=== PATIENT | female | born 1995 | race Caucasian/White ===

== ENCOUNTER 2022-04-16 08:00 | Outpatient (CLI) | payer OTHER ==
[2022-04-16 23:33] LABS: INFLUENZA A- RESP PCR PANEL NOT DETECTED; INFLUENZA B - RESP PCR PANEL NOT DETECTED; RSV- RESP PCR PANEL NOT DETECTED; SARS-CoV-2 -RESP PCR PANEL NOT DETECTED
== END 2022-04-16 23:59 | disposition home or self-care (01) ==
LOC: LAB 08:00
PROVIDERS: ATTEND Physician Assistant
DX: J06.9 Acute upper respiratory infection, unspecified (principal); Z20.822 Contact with and (suspected) exposure to COVID-19
CPT/HCPCS: 87637

== ENCOUNTER 2023-05-18 11:36 | Emergency (ER) | payer OTHER ==
[2023-05-18 11:51] VITALS: BP 139/85; O2SAT 98
[2023-05-18] MEDS ORDERED: ONDANSETRON 4 MG/2 ML VIAL IVP STA (11:59)
[2023-05-18] MEDS ORDERED: SODIUM CHLORIDE 0.9% 1,000 ML IV STA (11:59)
--- NOTE | 2023-05-18 12:02 | ED Physician Documentation ---
History of Present Illness - Stated complaint Stated Complaint: VOMIT,STOMACH PX - Chief complaint Chief Complaint: Abd Pain - Additonal information Additional information: 27-year-old female comes to the emergency department for evaluation of generalized malaise and vomiting. States that for the last 3 days she has felt fatigued and tired. No fevers but cannot get warm. She had upper abdominal cramping and vomiting. Denies possibility of as she just ended her menstrual cycle. She was also concerned about some bruising on her right calf. Was seen at [facility] and was told that the bruise was likely superficial thrombophlebitis. Patient denies chest pain or shortness of air. No recent travel. No unilateral leg swelling. No hormone use. No personal history of cancer or DVT. Past surgical history includes previous cholecystectomy. Patient takes no prescribed medications. Review of Systems Constitutional: reports: Chills, Fatigue. denies: Fever, Myalgias Eyes: reports: Reviewed and negative Nose: reports: Reviewed and negative Throat: reports: Reviewed and negative Cardiac: denies: Chest pain / pressure, Palpitations, Pedal edema, Calf pain Respiratory: denies: Dyspnea, Cough, Hemoptysis, Wheezing GI: reports: Abdominal Pain, Nausea, Vomiting. denies: Constipation, Diarrhea : reports: Reviewed and negative Skin: reports: Reviewed and negative Musculoskeletal: reports: Reviewed and negative PD PAST MEDICAL HISTORY - Past Medical History Past Medical History: Yes Respiratory: Asthma - Past Surgical History Past Surgical History: Yes General: Cholecystectomy HEENT: Other - Present Medications Home Medications: Ambulatory Orders Medication Instructions Recorded Confirmed Ondansetron Odt [Zofran] 4 mg TL Q6H PRN #10 tablet 05/18/23 - Allergies Allergies/Adverse Reactions: Allergies Allergy/AdvReac Type Severity Reaction Status Date / Time No Known Drug Allergies Allergy Verified 05/18/23 11:48 - Social History Does the pt smoke?: No Smoking Status: Never smoker Does the pt drink ETOH?: No Does the pt have substance abuse?: No - Immunizations Immunizations are current?: Yes PD ED PE NORMAL - General General: Alert and oriented X 3, No acute distress, Well developed/nourished - HEENT HEENT: Atraumatic - Neck Neck: Supple, no meningeal sign - Cardiac Cardiac: RRR, No murmur - Respiratory Respiratory: No respiratory distress, Clear bilaterally - Abdomen Abdomen: Normal bowel sounds, Soft, Non tender (I elicited no abdominal tenderness with light or deep palpation or percussion. 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 Eye Opening: Spontaneous Motor: Obeys Commands Verbal: Oriented GCS Score: 15 Results - Vitals Vitals: Vital Signs - 24 hr 05/18/23 11:41 Temperature 37.3 C Heart Rate 75 Respiratory 15 Rate Blood Pressure 139/85 H O2 Saturation 98 - Labs Labs: Laboratory Tests 05/18/23 05/18/23 05/18/23 12:01 12:09 12:09 WBC 7.1 RBC 5.11 Hgb 14.8 Hct 44.4 MCV 86.9 MCH 29.0 MCHC 33.3 RDW 12.3 Plt Count 323 MPV 10.7 Neut # (Auto) 5.2 Lymph # (Auto) 1.3 L [place] # (Auto) 0.4 Eos # (Auto) 0.2 Baso # (Auto) 0.1 Absolute Nucleated RBC 0.00 Nucleated RBC % 0.0 Sodium 138 Potassium 4.0 Chloride 105 Carbon Dioxide 25 Anion Gap 8.0 BUN 13 Creatinine 0.8 Estimated GFR (MDRD) 85 L Glucose 102 Calcium 9.4 Total Bilirubin 0.6 AST 18 ALT 32 Alkaline Phosphatase 66 Total Protein 6.9 Albumin 4.5 Globulin 2.4 Albumin/Globulin Ratio 1.9 Lipase < 10 L Urine Color YELLOW Urine Clarity CLEAR Urine pH 6.5 Ur Specific [place] 1.010 Urine Protein NEGATIVE Urine Glucose (UA) NEGATIVE Urine Ketones NEGATIVE Urine Occult Blood MODERATE H Urine Nitrite NEGATIVE Urine Bilirubin NEGATIVE Urine Urobilinogen 0.2 (NORMAL) Ur Leukocyte Esterase SMALL H Urine RBC None Seen Urine WBC 11-25 H Urine WBC Clumps PRESENT Ur Squamous Epith Cells MOD Squamous H Urine Bacteria Few Ur Microscopic Review INDICATED Urine Culture Comments NOT INDICATED Urine HCG, Qual NEGATIVE PD Medical Decision Making - ED course Complexity details: reviewed results, re-evaluated patient, d/w patient ED course: 27-year-old female comes emergency department for evaluation of several days of fatigue, malaise and now upper abdominal pain nausea and vomiting. On presentation she appears remarkably well. No abdominal tenderness was elicited. CBC, electrolytes and urinalysis were without acute worrisome abnormalities. I administered the patient some IV fluids and Zofran and on reevaluation she reported the nausea had improved. Clinically I suspect the patient has a mild viral illness causing the fatigue and nausea. Given the lack of abdominal tenderness or worrisome abnormal vital signs or labs I do not feel that advanced imaging is clinically warranted today as I am not suspicious for occult surgical abdomen. Prescription for Zofran is sent to the patient's preferred pharmacy. The usual emergent return precautions were discussed for worsening symptoms. Departure - Departure Disposition: Home, Self Care Clinical Impression: Fatigue Qualifiers: Fatigue type: unspecified Qualified Code(s): R53.83 - Other fatigue Vomiting Qualifiers: Vomiting type: unspecified Nausea presence: with nausea Qualified Code(s): R11.2 - Nausea with vomiting, unspecified Condition: Stable Prescriptions: Ondansetron Odt [Zofran] 4 mg TL Q6H PRN #10 tablet PRN Reason: Nausea / Vomiting Comments: As discussed at the bedside I suspect the most likely cause of your fatigue, malaise and nausea is a virus. This typically runs its course and 3 to 5 days. Your labs obtained today in the emergency department were all essentially normal without any worrisome findings. We did give you some IV fluids as well as some IV Zofran here in the emergency department and he feels that the nausea is improved. I have sent a prescription for some oral Zofran to the [facility] in [place]. In general over the next several days I recommend fluids at home and rest. Reasons to return to the emergency department would include uncontrolled vomiting, sudden severe abdominal pain, black or bloody stools. Forms: PCP List
[2023-05-18 12:10] LABS: BILIRUBIN,URINE NEGATIVE (NEGATIVE); GLUCOSE, URINE (UA) NEGATIVE (NEGATIVE); KETONES,URINE (UA) NEGATIVE (NEGATIVE); LEUKOCYTE ESTERASE, URINE SMALL (NEGATIVE); NITRITE,URINE NEGATIVE (NEGATIVE); OCCULT BLOOD,URINE MODERATE (NEGATIVE); PH,URINE 6.5 PH (5.0-7.5); PROTEIN,URINE NEGATIVE (NEGATIVE); UROBILINOGEN,URINE 0.2 (NORMAL) E.U./dL (NORMAL)
[2023-05-18 12:12] LABS: CLARITY,URINE CLEAR (CLEAR); HCG UR QUAL NEGATIVE
[2023-05-18 12:15] LABS: BASOPHILS # (AUTO) 0.1 10^3/uL (0.0-0.1); BASOPHILS % (AUTO) 0.7 %; EOSINOPHILS # (AUTO) 0.2 10^3/uL (0.0-0.7); EOSINOPHILS % (AUTO) 2.7 %; HCT - HEMATOCRIT 44.4 % (37.0-47.0); HGB - HEMOGLOBIN 14.8 g/dL (12.0-16.0); LYMPHOCYTES # (AUTO) 1.3 10^3/uL (1.5-3.5); LYMPHOCYTES % (AUTO) 17.9 %; MEAN CORPUSCULAR HGB CONC 33.3 g/dL (32.0-36.0); MEAN CORPUSCULAR VOLUME 86.9 fL (81.0-99.0); MEAN PLATELET VOLUME 10.7 fL (7.9-10.8); MONOCYTES # (AUTO) 0.4 10^3/uL (0.0-1.0); MONOCYTES % (AUTO) 5.5 %; NEUTROPHILS # (AUTO) 5.2 10^3/uL (1.5-6.6); NEUTROPHILS % (AUTO) 72.9 %; PLT - PLATELET COUNT 323 10^3/uL (130-450); RED BLOOD COUNT 5.11 10^6/uL (4.20-5.40); RED CELL DISTRIBUTION WIDTH 12.3 % (12.0-15.0); WHITE BLOOD COUNT 7.1 x10^3/uL (4.8-10.8)
[2023-05-18 12:19] LABS: BACTERIA,URINE Few /HPF (None Seen); RBC,URINE None Seen /HPF (0-5); SQUAMOUS EPITHELIAL CELL,UR MOD Squamous (<= Few); WBC CLUMPS,URINE PRESENT
[2023-05-18 12:31] LABS: ALBUMIN 4.5 g/dL (3.2-5.5); ALBUMIN/GLOBULIN RATIO 1.9 (1.0-2.2); ALKALINE PHOSPHATASE 66 IU/L (42-121); ALT ALANINE AMINOTRANSFERASE 32 IU/L (10-60); AST ASPARTATE AMINOTRANSFERASE 18 IU/L (10-42); BILIRUBIN,TOTAL 0.6 mg/dL (0.2-1.0); BUN - BLOOD UREA NITROGEN 13 mg/dL (6-20); CALCIUM 9.4 mg/dL (8.5-10.3); CARBON DIOXIDE - CO2 25 mmol/L (21-32); CHLORIDE 105 mmol/L (101-111); CREATININE 0.8 mg/dL (0.6-1.3); GFR - MDRD 85 (>89); GLUCOSE 102 mg/dL (74-104); SODIUM 138 mmol/L (135-145); TOTAL PROTEIN 6.9 g/dL (6.4-8.9)
[2023-05-18 12:42] LABS: LIPASE < 10 U/L (11-82)
== END 2023-05-18 13:08 | disposition home or self-care (01) ==
LOC: ED 11:36
DX: R11.2 Nausea with vomiting, unspecified (principal); R53.83 Other fatigue
CPT/HCPCS: 36415; 80053; 81001; 81003; 81025; 83690; 85025; 87086; 96374; 99283

== ENCOUNTER 2024-02-27 18:52 | Emergency (ER) | payer OTHER ==
--- NOTE | 2024-02-27 19:26 | ED Physician Documentation ---
History of Present Illness - Stated complaint Stated Complaint: RT FOOT PX - Chief complaint Chief Complaint: Ext Problem - Additonal information Additional information: Patient is a 28-year-old female presenting to the emergency department with right foot pain and swelling. Patient notes she ran a half marathon yesterday and today has persistent pain. She noted pain to the dorsal portion of her right foot. She notes similar episode occurred back in September when she ran a half marathon that as well. She denies any pain while she was doing her training. No obvious deformity according to patient. She was able to walk and bear weight on the foot throughout the day. PD PAST MEDICAL HISTORY - Past Medical History Past Medical History: Yes Respiratory: Asthma - Past Surgical History Past Surgical History: Yes General: Cholecystectomy HEENT: Other - Present Medications Home Medications: Ambulatory Orders Medication Instructions Recorded Confirmed Ondansetron Odt [Zofran] 4 mg TL Q6H PRN #10 tablet 05/18/23 - Allergies Allergies/Adverse Reactions: Allergies Allergy/AdvReac Type Severity Reaction Status Date / Time No Known Drug Allergies Allergy Verified 02/27/24 18:56 - Social History Does the pt smoke?: No Smoking Status: Never smoker Does the pt drink ETOH?: No Does the pt have substance abuse?: No - Immunizations Immunizations are current?: Yes - POLST Patient has POLST: No PD ED PE NORMAL - Vitals Vital signs reviewed: Yes - General General: Alert and oriented X 3 - HEENT HEENT: Atraumatic - Neck Neck: Supple, no meningeal sign - Cardiac Cardiac: RRR, No murmur, No gallop, No rub - Respiratory Respiratory: No respiratory distress, Clear bilaterally - Abdomen Abdomen: Normal bowel sounds - Back Back: No CVA TTP - Derm Derm: Normal color, Warm and dry, No rash - Neuro Neuro: Alert and oriented X 3 Eye Opening: Spontaneous Motor: Obeys Commands Verbal: Oriented GCS Score: 15 Results - Vitals Vitals: Vital Signs - 24 hr 02/27/24 18:56 Temperature 36.5 C Heart Rate 96 Respiratory 16 Rate Blood Pressure 150/90 H O2 Saturation 98 Oxygen O2 Source Room air PD Medical Decision Making - ED course Complexity details: reviewed old records, reviewed results ED course: Patient is a 28-year-old female with right foot pain that occurred after running half marathon yesterday she notes she was able to bear weight on it but have persistent pain despite taking ibuprofen in the morning. She notes similar episode occurred back in September when she ran a half marathon done as well. She notes numbness or tingling. Sensation intact on physical exam reproducible tenderness to metatarsal of the first digit and second digit. No obvious swelling is 1 through 5 full range of motion intact. X-ray showed no acute fracture. Patient updated on reassuring findings. She is given crutches and postop shoe here in emergency department and instructed to remain off foot until pain resolves. If symptoms do not resolve after a week she is instructed to follow-up with her PCP she may require further imaging at this time. Patient agreeable with this plan instructed to take Tylenol and ibuprofen for pain elevate and ice to help with symptoms. Departure - Departure Disposition: 01 Home, Self Care Clinical Impression: Right foot sprain, Right foot pain Condition: Good Instructions: ED ADOLPH Comments: You were seen here in the emergency department for your right foot pain your workup here in the emergency department showed no acute fracture. I have given you a postop shoe to help with pain control and crutches to help with ambulating at home you should continue to use these until pain resolves if your pain persists while trying to walk please return to the emergency department or follow-up with your PCP after 1 week for repeat imaging as this could be a sign of an occult fracture versus stress fracture please return with any pain swelling fevers nausea vomiting discoloration to extremity. Forms: PCP List
--- NOTE | 2024-02-27 19:59 | XRAY Report ---
PROCEDURE: Foot 3+V RT INDICATIONS: Trauma TECHNIQUE: 3 views of the foot were acquired. COMPARISON: None. FINDINGS: Bones: No fractures or dislocations. No suspicious bony lesions. Soft tissues: No tibiotalar joint effusion. Achilles tendon appears normal. IMPRESSION: No acute bony abnormality. No radiographic evidence of stress fracture. Reviewed by: José Miguel Rodriguez MD on 02/27/2024 7:57 PM PDT Approved by: José Miguel Rodriguez MD on 02/27/2024 7:57 PM PDT Station ID: [id number]
[2024-02-27 21:00] VITALS: BP 152/84; O2SAT 99
== END 2024-02-27 20:46 | disposition home or self-care (01) ==
LOC: ED 18:52
DX: S93.601A Unspecified sprain of right foot, initial encounter (principal); Y93.02 Activity, running
CPT/HCPCS: 99283